=== PATIENT | male | born 1970 | race Caucasian/White ===

== ENCOUNTER 2017-02-17 11:20 | Inpatient (IN) | payer OTHER ==
[2017-02-17 11:30] VITALS: BMI 25.7
--- NOTE | 2017-02-17 11:33 | PDOC ---
History of Present Illness - General Chief Complaint: Rash Stated Complaint: RASH Time Seen by Provider: 02/17/17 11:22 History Source: Patient Exam Limitations: No Limitations - History of Present Illness Initial Comments: 02/17/17 11:23 This is a 46 yo M with a history of genital herpes Pt presented to [facility] with a complaint of a rash He was asked to follow up with an ID specialist Pt presented to the ER for evaluation He states that since 1996, he was diagnosed with Genital Herpes He has had outbreaks in several areas of his skin intermittently every 4-5 years More recently, it is happening every 2-3 years The last outbreak was approximately 3 years ago He noticed lesions on his back. He was seen by a supervisor polishing who told him it was Herpes He has never been treated His PMD has never seen him for this, has never treated him for this Five days ago he noted a few small erythematous lesions on the lateral left leg These lesions really began hurting 2 days ago He noted yellow drainage yesterday He noticed spreading erythema since last night No fevers or chills He now notes a few lesions on his right leg (small erythematous papules) He also notes lesions on his right thumb PMH: borderline diabetes PSH: denies Meds: denies ALL: NKDA Social: (+) tobacco use (1 cigarette ever 1month), marijuanna use, denies IVDU GENERAL/CONSTITUTIONAL: No: fever, chills, weakness, loss of appetite. HEAD, EYES, EARS, NOSE AND THROAT: No: change in vision, ear pain, discharge, sore throat, throat swelling. CARDIOVASCULAR: No: chest pain, lightheadedness, palpitations, syncope RESPIRATORY: No: cough, shortness of breath, wheezing, hemoptysis, stridor. GASTROINTESTINAL: No: nausea, vomiting, diarrhea, abdominal cramping, rectal bleeding, constipation. GENITOURINARY: No: dysuria, hematuria, frequency, urgency, flank pain. MUSCULOSKELETAL: No: back pain, neck pain, joint pain, muscle swelling or pain SKIN: Yes: lesions No: pallor, rash or easy bruising. NEUROLOGIC: No: headache, vertigo, paresthesias, weakness ENDOCRINE: No: unexplained weight gain or loss HEMATOLOGIC/LYMPHATIC: No: anemia, easy bleeding, swelling nodes. GENERAL: The patient is in no acute distress. HEAD: Normal with no signs of trauma. EYES: PERRLA, EOMI, sclera anicteric, conjunctiva clear. ENT: Ears normal, nares patent, oropharynx clear without exudates. Moist mucous membranes. NECK: Normal range of motion, supple without lymphadenopathy, JVD, or masses. LUNGS: Breath sounds equal, clear to auscultation bilaterally. No wheezes, and no crackles. HEART: Regular rate and rhythm, normal S1 and S2 without murmur, rub or gallop. ABDOMEN: Soft, nontender, normoactive bowel sounds. No guarding, no rebound. No masses palpable. EXTREMITIES: Normal range of motion, no edema. No clubbing or cyanosis. No erythema, or tenderness. NEUROLOGICAL: Cranial nerves II through XII grossly intact. Normal speech. No focal neurological deficits. MUSCULOSKELETAL: Back non-tender to palpation, no CVA tenderness SKIN: Left lateral leg with... Multiple erythematous lesions Skin erythema extends to the popliteal fossa (+) honey crusted drainage noted Skin is warm 02/17/17 11:33 02/19/17 07:33 Past History - Past Medical History Allergies/Adverse Reactions: Allergies Allergy/AdvReac Type Severity Reaction Status Date / Time No Known Allergies Allergy Verified 02/17/17 11:21 Home Medications: Ambulatory Orders NK [No Known Home Medication] 02/17/17 Heart Score/ECG Review #1 ECG reviewed & interpreted by me at: 17:01 02/17/17 17:01 Twelve-lead EKG was performed and reviewed by me. There is normal sinus rhythm with a normal rate of 57 bpm. The axis is normal. The intervals are normal - pr: 172ms, QRS:92ms, QTc:410ms. There are no ST elevations or depressions. T waves nml ED Treatment Course - LABORATORY CBC & Chemistry Diagram: 02/18/17 07:30 02/18/17 07:30 Medical Decision Making - Medical Decision Making 02/17/17 11:41 Likely herpes outbreak Can Give Valtrex Pt also has cellulitis/Impetigo Call placed to Dr thompson He will see him in the ER 02/17/17 13:47 Laboratory Tests 02/17/17 02/17/17 12:10 12:10 WBC 7.2 Hgb 16.6 Hct 47.2 Plt Count 206 Sodium 134 L Potassium 4.2 Chloride 99 Carbon Dioxide 29 H BUN 24 H Creatinine 1.1 02/17/17 16:32 Pt seen in the ER by Dr Thompson He would like him to be admitted for IV acyclovir He would like this patient admitted to Dr Hayes He has spoken with Dr hayes regarding this patient 02/17/17 16:33 *DC/Admit/Observation/Transfer Diagnosis at time of Disposition: Herpes simplex infection of skin, Impetigo - Discharge Dispostion Condition at time of disposition: Stable Admit: Yes - Referrals - Patient Instructions
[2017-02-17 13:10] LABS: BASOPHIL 0.5 % (0-2.0); EOSINOPHIL 2.3 % (0-4.5); MCH 32.2 pg (25.7-33.7); MCHC 35.3 g/dl (32.0-35.9); MEAN CELL VOLUME 91.3 fl (80-96); MEAN PLT VOLUME 9.4 fl (7.5-11.1); NEUTROPHILS 71.8 % (42.8-82.8); PLATELET COUNT 206 K/MM3 (134-434); RDW 12.1 % (11.9-15.9); WHITE BLOOD COUNT 7.2 K/mm3 (4.0-10.8)
[2017-02-17 13:20] LABS: ALBUMIN 4.5 g/dl (3.5-5.0); ALK PHOS 56 U/L (32-92); ANION GAP 6 (8-16); BILIRUBIN,TOTAL 1.8 mg/dl (0.2-1.0); CO2 29 mmol/L (22-28); CREATININE 1.1 mg/dl (0.6-1.3); GLUCOSE,RANDOM 97 mg/dl (74-106); SGOT/AST 20 U/L (10-42); SGPT/ALT 23 U/L (10-40); TOT PROT 6.9 g/dl (6.4-8.3)
[2017-02-17] MEDS ORDERED: ACYCLOVIR INJECTION 500 MG in DEXTROSE 5%-WATER - 100 ML IVPB ONE (16:28)
--- NOTE | 2017-02-17 16:45 | CONSULT ---
Consult Consult Specialty:: infectious diseases Reason for Consultation:: rash,flare up of herpes - History of Present Illness Chief Complaint: rash and itching History of Present Illness: 46 yo M with a history of genital herpes and flare up every 4 yrs now happening every 2 years comes again for a flare up.This time patient has more than one dermatome involved since 1996, he was diagnosed with Genital Herpes He was recently diagnosed with herpes but was never treated His PMD has never seen him for this, has never treated him for this Five days ago he noted a few small erythematous lesions on the lateral left leg which started hurting and itching also he did scratch it and then started having yellow drainage from the lesion and found that the erythema was spreading These lesions really began hurting 2 days ago it has now spread to his hand also new lesions on the penis according to him - History Source History Provided By: Patient Limitations to Obtaining History: No Limitations - Alcohol/Substance Use Hx Alcohol Use: No - Smoking History Smoking history: Current some day smoker Have you smoked in the past 12 months: Yes Aproximately how many cigarettes per day: 1 Home Medications - Allergies Allergies/Adverse Reactions: Allergies Allergy/AdvReac Type Severity Reaction Status Date / Time No Known Allergies Allergy Verified 02/17/17 11:21 - Home Medications Home Medications: Ambulatory Orders RX: Clindamycin [Cleocin -] 300 mg PO Q8H #15 capsule 02/19/17 RX: Valacyclovir HCl [Valtrex] 1,000 mg PO DAILY #7 tablet 02/19/17 Review of Systems - Review of Systems Constitutional: reports: No Symptoms Eyes: reports: No Symptoms HENT: reports: No Symptoms Neck: reports: No Symptoms Cardiovascular: reports: No Symptoms Respiratory: reports: No Symptoms Gastrointestinal: reports: No Symptoms Genitourinary: reports: No Symptoms Breasts: reports: No Symptoms Reported Musculoskeletal: reports: No Symptoms Integumentary: reports: Bruising, Erythema, Rash, Wound Neurological: reports: No Symptoms Endocrine: reports: No Symptoms Hematology/Lymphatic: reports: No Symptoms Psychiatric: reports: No Symptoms Physical Exam Vital Signs: Vital Signs Temperature 98.5 F 02/17/17 11:21 Pulse Rate 65 02/17/17 11:21 Respiratory Rate 18 02/17/17 11:21 Blood Pressure 125/81 02/17/17 11:21 O2 Sat by Pulse Oximetry (%) 96 02/17/17 11:21 Constitutional: Yes: Well Nourished, No Distress, Calm Neck: Yes: Supple Cardiovascular: Yes: Regular Rate and Rhythm Respiratory: Yes: Regular, CTA Bilaterally Gastrointestinal: Yes: Normal Bowel Sounds, Soft Renal/: Yes: Other (herpes lesions present at the base of the penis and the frenulum region) Musculoskeletal: Yes: Other Extremities: Yes: Other (rash on the left) Neurological: Yes: Alert, Oriented Psychiatric: Yes: Alert, Oriented Labs: CBC, BMP 02/17/17 12:10 02/17/17 12:10 Assessment/Plan herpes genitalis (1) Herpes simplex infection of skin Code(s): B00.9 - HERPESVIRAL INFECTION, UNSPECIFIED (2) Impetigo Code(s): L01.00 - IMPETIGO, UNSPECIFIED (3) disseminated herpes plan will start on acylovir also will start clinda hydration monitor the wounds once the wounds dry up will switch to oral await for all results to be back
[2017-02-17] MEDS: SODIUM CHLORIDE 1,000 ML IV SCH (16:50)
--- NOTE | 2017-02-17 18:10 | PDOC ---
ED Treatment Course - LABORATORY CBC & Chemistry Diagram: 02/17/17 12:10 02/17/17 12:10 - ADDITIONAL ORDERS Additional order review: Laboratory Results 02/17/17 12:10 Sodium 134 L Potassium 4.2 Chloride 99 Carbon Dioxide 29 H Anion Gap 6 L BUN 24 H Creatinine 1.1 Creat Clearance w eGFR > 60 Random Glucose 97 Calcium 9.0 Total Bilirubin 1.8 H AST 20 ALT 23 Alkaline Phosphatase 56 Total Protein 6.9 Albumin 4.5 02/17/17 12:10 RBC 5.17 MCV 91.3 MCHC 35.3 RDW 12.1 MPV 9.4 Neutrophils % 71.8 Lymphocytes % 18.2 Monocytes % 7.2 Eosinophils % 2.3 Basophils % 0.5 Medical Decision Making - Medical Decision Making 02/17/17 18:10 Will pLace on observation *DC/Admit/Observation/Transfer Diagnosis at time of Disposition: Herpes simplex infection of skin, Impetigo - Discharge Dispostion Condition at time of disposition: Stable Admit: Yes Decision to Admit order Date/Time: Decision to Admit Order Category Date Time Status Decision to Admit to Hospital Routine Admission 02/17/17 16:33 Active
[2017-02-17] MEDS ORDERED: CLINDAMYCIN PHOSPHATE 600 MG/4 ML VIAL ONE (18:12)
[2017-02-17] MEDS: CLINDAMYCIN 600MG PREMIX IVPB 50 ML IVPB SCH (18:13)
--- NOTE | 2017-02-17 19:20 | HP ---
Admitting History and Physical - Primary Care Physician PCP: Abelino Pisano - Admission Chief Complaint: rash History of Present Illness: This is a 46 yo M with a history of genital herpes Pt presented to [facility] with a complaint of a rash He was asked to follow up with an ID specialist Pt presented to the ER for evaluation He states that since 1996, he was diagnosed with Genital Herpes He has had outbreaks in several areas of his skin intermittently every 4-5 years More recently, it is happening every 2-3 years The last outbreak was approximately 3 years ago He noticed lesions on his back. He was seen by a mergers and acquisitions banker who told him it was Herpes He has never been treated His PMD has never seen him for this, has never treated him for this Five days ago he noted a few small erythematous lesions on the lateral left leg These lesions really began hurting 2 days ago He noted yellow drainage yesterday He noticed spreading erythema since last night No fevers or chills He now notes a few lesions on his right leg (small erythematous papules) He also notes lesions on his right thumb history taken from er records and reviewed with patient - Smoking History Smoking history: Current some day smoker Have you smoked in the past 12 months: Yes Aproximately how many cigarettes per day: 1 - Alcohol/Substance Use Hx Alcohol Use: No Home Medications - Allergies Allergies/Adverse Reactions: Allergies Allergy/AdvReac Type Severity Reaction Status Date / Time No Known Allergies Allergy Verified 02/17/17 11:21 - Home Medications Home Medications: Ambulatory Orders Clindamycin [Cleocin -] 300 mg PO Q8H #15 capsule 02/19/17 Valacyclovir HCl [Valtrex] 1,000 mg PO DAILY #7 tablet 02/19/17 Physical Examination Vital Signs: Vital Signs Temperature 98.5 F 02/17/17 11:21 Pulse Rate 65 02/17/17 11:21 Respiratory Rate 18 02/17/17 11:21 Blood Pressure 125/81 02/17/17 11:21 O2 Sat by Pulse Oximetry (%) 96 02/17/17 11:21 Constitutional: Yes: No Distress HENT: Yes: Atraumatic Neck: Yes: Supple Cardiovascular: Yes: Regular Rate and Rhythm Respiratory: Yes: CTA Bilaterally Gastrointestinal: Yes: Normal Bowel Sounds Extremities: Yes: Other (lesions of herpes on lower extremity right thumb) Edema: No Peripheral Pulses WNL: Yes Integumentary: Yes: Rash Neurological: Yes: Alert, Oriented Problem List - Problems (1) Herpes simplex infection of skin Assessment/Plan: on iv abx per id Code(s): B00.9 - HERPESVIRAL INFECTION, UNSPECIFIED (2) Impetigo Assessment/Plan: on abx Code(s): L01.00 - IMPETIGO, UNSPECIFIED Assessment/Plan Laboratory Tests 02/17/17 02/17/17 12:10 12:10 WBC 7.2 RBC 5.17 Hgb 16.6 Hct 47.2 MCV 91.3 MCHC 35.3 RDW 12.1 Plt Count 206 MPV 9.4 Neutrophils % 71.8 Lymphocytes % 18.2 Monocytes % 7.2 Eosinophils % 2.3 Basophils % 0.5 Sodium 134 L Potassium 4.2 Chloride 99 Carbon Dioxide 29 H Anion Gap 6 L BUN 24 H Creatinine 1.1 Creat Clearance w eGFR > 60 Random Glucose 97 Calcium 9.0 Total Bilirubin 1.8 H AST 20 ALT 23 Alkaline Phosphatase 56 Total Protein 6.9 Albumin 4.5 Active Medications Generic Name Dose Route Start Last Admin Trade Name Freq PRN Reason Stop Dose Admin Clindamycin Phosphate 50 mls @ 100 mls/hr 02/17/17 18:00 02/17/17 18:13 Cleocin 600 Mg Premix Ivpb - IVPB 100 mls/hr Q8H-IV ALLEGRA Administration Acyclovir 400 mg/ Dextrose 108 mls @ 108 mls/hr 02/18/17 02:00 IVPB Q8H-IV ALLEGRA Sodium Chloride 1,000 mls @ 83 mls/hr 02/17/17 16:45 02/17/17 16:50 Normal Saline - IV 83 mls/hr ASDIR ALLEGRA Administration
[2017-02-17] MEDS ORDERED: ACETAMINOPHEN 325 MG TABLET (FP) PO PRN (19:22)
[2017-02-17] MEDS ORDERED: oxyCODONE HCL 5 MG TABLET PO PRN (19:23)
[2017-02-17 20:41] LABS: HIV 1 & 2 AB NEGATIVE; HIV 1 AGp24 NEGATIVE
[2017-02-18] MEDS: CLINDAMYCIN 600MG PREMIX IVPB 50 ML IVPB SCH ×3 (01:10→17:11)
[2017-02-18] MEDS: ACYCLOVIR INJECTION 400 MG in DEXTROSE 5%-WATER - 100 ML IVPB SCH ×3 (02:03→17:11)
[2017-02-18 08:07] LABS: ALBUMIN 3.8 g/dl (3.5-5.0); ALK PHOS 48 U/L (32-92); ANION GAP 3 (8-16); BILIRUBIN,TOTAL 1.7 mg/dl (0.2-1.0); CALCIUM 8.4 mg/dl (8.4-10.2); CO2 28 mmol/L (22-28); GLUCOSE,RANDOM 101 mg/dl (74-106); SGOT/AST 17 U/L (10-42); SGPT/ALT 20 U/L (10-40); TOT PROT 5.8 g/dl (6.4-8.3)
[2017-02-18 08:23] LABS: BASOPHIL 1.5 % (0-2.0); EOSINOPHIL 5.1 % (0-4.5); MCH 31.2 pg (25.7-33.7); MCHC 33.9 g/dl (32.0-35.9); MEAN PLT VOLUME 9.1 fl (7.5-11.1); NEUTROPHILS 48.4 % (42.8-82.8); PLATELET COUNT 184 K/MM3 (134-434); RDW 12.2 % (11.9-15.9); WHITE BLOOD COUNT 4.5 K/mm3 (4.0-10.8)
[2017-02-18] MEDS ORDERED: PT OWN MED DRAWER 7, Y5N ONE ×2 (10:01→16:36)
--- NOTE | 2017-02-18 14:02 | PN ---
Progress Note, Physician - Current Medication List Current Medications: Active Medications Acetaminophen (Tylenol -) 650 mg PO Q6H PRN PRN Reason: FEVER OR PAIN Clindamycin Phosphate (Cleocin 600 Mg Premix Ivpb -) 50 mls @ 100 mls/hr IVPB Q8H-IV ALLEGRA Last Admin: 02/19/17 17:20 Dose: 100 mls/hr Acyclovir 400 mg/ Dextrose 108 mls @ 108 mls/hr IVPB Q8H-IV ALLEGRA Last Admin: 02/19/17 17:20 Dose: 108 mls/hr Oxycodone HCl (Roxicodone -) 10 mg PO Q6H PRN PRN Reason: PAIN - Objective Vital Signs: Vital Signs Temperature 98.6 F 02/19/17 14:00 Pulse Rate 68 02/19/17 14:00 Respiratory Rate 18 02/19/17 18:07 Blood Pressure 119/59 02/19/17 14:00 O2 Sat by Pulse Oximetry (%) 97 02/19/17 20:28 Labs: CBC, BMP 02/18/17 07:30 02/18/17 07:30 <Abelino Pisano - Last Filed: 02/19/17 20:46> History of Present Illness: patient doing much better wounds drying - Current Medication List Current Medications: Active Medications Acetaminophen (Tylenol -) 650 mg PO Q6H PRN PRN Reason: FEVER OR PAIN Clindamycin Phosphate (Cleocin 600 Mg Premix Ivpb -) 50 mls @ 100 mls/hr IVPB Q8H-IV ALLEGRA Last Admin: 02/18/17 10:07 Dose: 100 mls/hr Acyclovir 400 mg/ Dextrose 108 mls @ 108 mls/hr IVPB Q8H-IV ALLEGRA Last Admin: 02/18/17 10:07 Dose: 108 mls/hr Sodium Chloride (Normal Saline -) 1,000 mls @ 83 mls/hr IV ASDIR ALLEGRA Last Admin: 02/17/17 16:50 Dose: 83 mls/hr Oxycodone HCl (Roxicodone -) 10 mg PO Q6H PRN PRN Reason: PAIN - Objective Vital Signs: Vital Signs Temperature 97.7 F 02/18/17 08:59 Pulse Rate 62 02/18/17 08:59 Respiratory Rate 18 02/18/17 08:59 Blood Pressure 125/63 02/18/17 08:59 O2 Sat by Pulse Oximetry (%) 97 02/18/17 06:28 Constitutional: Yes: No Distress, Calm HENT: Yes: Atraumatic Cardiovascular: Yes: Regular Rate and Rhythm Respiratory: Yes: Regular, CTA Bilaterally Gastrointestinal: Yes: Normal Bowel Sounds, Soft Musculoskeletal: Yes: WNL Extremities: Yes: Other (rash drying) Neurological: Yes: Alert, Oriented Psychiatric: Yes: Alert Labs: CBC, BMP 02/18/17 07:30 02/18/17 07:30 <Rosalino Fry - Last Filed: 02/23/17 13:04> Problem List - Problems (1) Herpes simplex infection of skin Assessment/Plan: on iv abx Code(s): B00.9 - HERPESVIRAL INFECTION, UNSPECIFIED (2) Impetigo Assessment/Plan: on clindamycin Code(s): L01.00 - IMPETIGO, UNSPECIFIED (3) Chest pain Assessment/Plan: will fu cardiac enzymes cardiology consult tele monitoring Code(s): R07.9 - CHEST PAIN, UNSPECIFIED <Abelino Pisano - Last Filed: 02/19/17 20:46> Assessment/Plan disseminated herepes genital herpes wound infection patients lesions have improved we should yaya able to switch to oral herpes medications tomorrow rest continue as per hernandez <Rosalino Fry M - Last Filed: 02/23/17 13:04>
[2017-02-18] MEDS: SODIUM CHLORIDE 1,000 ML IV SCH (17:11)
--- NOTE | 2017-02-18 17:32 | PN ---
Progress Note, Physician History of Present Illness: chest pain on and off today has been resting he had chest pain in the past and his pmd told him its musculoskeltal and was given motrin - Current Medication List Current Medications: Active Medications Acetaminophen (Tylenol -) 650 mg PO Q6H PRN PRN Reason: FEVER OR PAIN Clindamycin Phosphate (Cleocin 600 Mg Premix Ivpb -) 50 mls @ 100 mls/hr IVPB Q8H-IV ALLEGRA Last Admin: 02/18/17 17:11 Dose: 100 mls/hr Acyclovir 400 mg/ Dextrose 108 mls @ 108 mls/hr IVPB Q8H-IV ALLEGRA Last Admin: 02/18/17 17:11 Dose: 108 mls/hr Oxycodone HCl (Roxicodone -) 10 mg PO Q6H PRN PRN Reason: PAIN - Objective Vital Signs: Vital Signs Temperature 98.6 F 02/18/17 14:00 Pulse Rate 60 02/18/17 14:00 Respiratory Rate 18 02/18/17 14:00 Blood Pressure 113/56 02/18/17 14:00 O2 Sat by Pulse Oximetry (%) 94 L 02/18/17 14:00 Constitutional: Yes: No Distress HENT: Yes: Atraumatic Neck: Yes: Supple Cardiovascular: Yes: Regular Rate and Rhythm Respiratory: Yes: CTA Bilaterally Gastrointestinal: Yes: Normal Bowel Sounds Labs: CBC, BMP 02/18/17 07:30 02/18/17 07:30 Problem List - Problems (1) Herpes simplex infection of skin Assessment/Plan: on iv abx per id Code(s): B00.9 - HERPESVIRAL INFECTION, UNSPECIFIED (2) Impetigo Assessment/Plan: on abx Code(s): L01.00 - IMPETIGO, UNSPECIFIED (3) Chest pain Assessment/Plan: ekg, cardiac profile tele monitoring cardiology consult Code(s): R07.9 - CHEST PAIN, UNSPECIFIED
[2017-02-18 21:59] LABS: CPK(DFH) 89 IU/L (38-174)
[2017-02-18 22:11] LABS: TROPONIN I (DFP) < 0.03 ng/ml (0.03-0.50)
[2017-02-19] MEDS ORDERED: PT OWN MED DRAWER 7, Y5N ONE ×2 (01:38→17:18)
[2017-02-19] MEDS: CLINDAMYCIN 600MG PREMIX IVPB 50 ML IVPB SCH ×3 (01:39→17:20)
[2017-02-19] MEDS: ACYCLOVIR INJECTION 400 MG in DEXTROSE 5%-WATER - 100 ML IVPB SCH ×3 (02:31→17:20)
[2017-02-19 06:06] LABS: TROPONIN I < 0.02 ng/ml (0.00-0.05)
--- NOTE | 2017-02-19 07:30 | CON.CARD ---
Consult Consult Specialty:: Cardiology Referred by:: Dr. Pisano Reason for Consultation:: Chest pain - History of Present Illness Chief Complaint: Admitted for herpes infection, stated he had an episode of chest pain History of Present Illness: 46 year old man with no prior pmh admitted for treatment of herpes infection. Pt. mentioned during admission that he had an episode of chest pain. Pt. was seen and examined today in [facility]. He states that he has had episodes of chest pain in the past and was told by his PMD that it is musculoskeletal. He states that he exercises regularly doing high intensity work outs with a machine at home. He states that he occasionally has mild substernal chest pain after his work out and other times randomnly. he states it is sticking like, sharp, lasts for a few seconds then resolves on its own. it does not usually occur during exercise. no sob, palpitations, pnd, orthopnea, le edema. no lightheadedness, dizziness, syncope, near syncope. He states that the pain he felt during this admission is the same that he always has. He wouldnt have mentioned it except that he was asked. - History Source History Provided By: Patient, Medical Record Limitations to Obtaining History: No Limitations - Past Medical History Infectious Disease: Yes: Other (herpes) - Alcohol/Substance Use Hx Alcohol Use: No - Smoking History Smoking history: Current some day smoker Have you smoked in the past 12 months: Yes Aproximately how many cigarettes per day: 1 - Social History ADL: Independent History of Recent Travel: No Home Medications - Allergies Allergies/Adverse Reactions: Allergies Allergy/AdvReac Type Severity Reaction Status Date / Time No Known Allergies Allergy Verified 02/17/17 11:21 - Home Medications Home Medications: Ambulatory Orders NK [No Known Home Medication] 02/17/17 Family Disease History - Family Disease History Family History: Denies Review of Systems - Review of Systems Constitutional: denies: No Symptoms, Chills, Diaphoresis, Fever, Lethargy, Loss of Appetite, Malaise, Night Sweats, Unintentional Wgt. Loss, Weakness, Other Eyes: denies: No Symptoms, Blind Spots, Blurred Vision, Double Vision, Eye Pain , Floaters, Photophobia, Recent Change in Vision, Other HENT: denies: No Symptoms, Difficult Swallowing, Ear Discharge, Ear Pain, Epistaxis, Gingival Bleeding, Hearing Loss, Mouth Swelling, Nasal Congestion, Ocular Prosthesis, Throat Pain, Toothache, Ringing in Ears, Other Neck: denies: No Symptoms, Decreased ROM, Lumps, Pain on Movement, Stiffness, Swollen Glands, Tenderness, Other Cardiovascular: reports: Chest Pain. denies: No Symptoms, Edema, Palpitations, Shortness of Breath, Other Respiratory: denies: No Symptoms, Cough, Exercise Intolerance, Hemoptysis, Orthopnea, PND, Snoring, SOB, SOB on Exertion, Wheezing, Other Gastrointestinal: denies: No Symptoms, Abdominal Pain, Bloating, Constipation, Diarrhea, Dysphagia, Indigestion, Melena, Nausea, Rectal Bleeding, Vomiting, Vomiting Blood, Other Genitourinary: denies: No Symptoms, Burning, Discharge, Dysuria, Flank Pain, Frequency, Hematuria, Incontinence, Lesions, Menses, Pain, Testicular Mass, Testicular Pain, Testicular Swelling, Urgency, Vaginal Bleeding, Other Breasts: denies: No Symptoms Reported, See HPI, Breast Implants, Discharge from Nipple, Lumps, Pain, Skin Changes, Other Musculoskeletal: denies: No Symptoms, Back Pain, Crepitus, Decreased ROM, Extremity Pain, Joint Pain, Joint Swelling, Muscle Pain, Muscle Cramps, Muscle Weakness, Other Integumentary: reports: Rash. denies: No Symptoms, Blister, Bruising, Change in Color, Eczema, Erythema, Incision, Lesions, Lump, Pallor, Pruritis, Wound, Other Neurological: denies: No Symptoms, Change in LOC, Change in Speech, Confusion, Dizziness, Headache, Incoordination, Numbness, Parasthesia, Pre-Existing Deficit , Seizure, Syncope, Tremors, Unsteady Gait, Weakness, Other Endocrine: denies: No Symptoms, Excessive Sweating, Flushing, Increased Hunger, Increased Thirst, Intolerance to Cold, Intolerance to Heat, Unexplained Weight Gain, Unexplained Weight Loss, Other Hematology/Lymphatic: denies: No Symptoms, Easily Bruised, Excessive Bleeding, Swollen Glands, Other Psychiatric: denies: No Symptoms, Altered Sleep Pattern, Anxiety, Depression, Hallucinations, Panic, Paranoia, Suicidal, Other Vital Signs: Vital Signs Temperature 97.9 F 02/19/17 06:00 Pulse Rate 54 L 02/19/17 06:00 Respiratory Rate 18 02/19/17 06:00 Blood Pressure 108/62 02/19/17 06:00 O2 Sat by Pulse Oximetry (%) 96 02/19/17 06:00 Constitutional: Yes: Well Nourished, No Distress, Calm Eyes: Yes: WNL, Conjunctiva Clear, EOM Intact, PERRL HENT: Yes: WNL, Atraumatic, Normocephalic Neck: Yes: WNL, Supple, Trachea Midline Respiratory: Yes: WNL, Regular, CTA Bilaterally. No: Rales, Rhonchi, SOB, Wheezes Gastrointestinal: Yes: WNL, Normal Bowel Sounds, Soft. No: Distention, Tenderness Renal/: Yes: WNL Cardiovascular: Yes: WNL, Regular Rate and Rhythm. No: Bradycardia, Tachycardia , Pulse Irregular, Gallop, Rub, Varicosities JVD: No Carotid Bruit: No PMI: Non-Displaced Heart Sounds: Yes: S1, S2. No: Split S2, S3, S4, Clicks, Gallop, Rub, Bruit Murmur: No: Systolic Murmur, Diastolic Murmur Musculoskeletal: Yes: WNL Extremities: Yes: WNL Edema: No Peripheral Pulses WNL: Yes Peripheral Pulses: 2+ Left Doralis Pedis, 2+ Right Dorsalis Pedis Integumentary: Yes: Rash Neurological: Yes: WNL, Alert, Oriented, Cran Nerves II-XII Intact ...Motor Strength: WNL Psychiatric: Yes: WNL, Alert, Oriented - Other Data Labs, Other Data: CBC, BMP 02/18/17 07:30 02/18/17 07:30 Troponin, BNP 02/18/17 02/19/17 21:15 05:00 Troponin I < 0.03 L < 0.02 Troponin, BNP 02/18/17 02/19/17 21:15 05:00 Troponin I < 0.03 L < 0.02 ekg-NSR 61bpm, incomplete RBBB, nonspecific ST abnl Imaging - Results Chest X-ray: Report Reviewed, Image Reviewed EKG: Report Reviewed, Image Reviewed Other: Report Reviewed, Image Reviewed (tele-sinus bradycardia 50's) Assessment/Plan Disseminated Herpes Atypical chest pain, intermittent and chronic, dx MSK pain in past Sinus bradycardia Abnormal EKG non-anginal chest pain, likely non-cardiac, likely MSK cardiac enzymes wnl no sig arrythmia on telemetry no ischemia on ekg recommend outpatient follow up and consideration for an ETT as outpatient to both confirm there is no ischemia and to evaluate for chronotropic competency In regards to sinus bradycardia, pt is asymptomatic, exercises regularly without limitation, no sig arrhythmias on tele can dc tele no further inpatient work up needed at this point
--- NOTE | 2017-02-19 12:28 | PN ---
Progress Note, Physician History of Present Illness: patient doing well had chest pain yesterday was evaluated by cardiology workup negative - Current Medication List Current Medications: Active Medications Acetaminophen (Tylenol -) 650 mg PO Q6H PRN PRN Reason: FEVER OR PAIN Clindamycin Phosphate (Cleocin 600 Mg Premix Ivpb -) 50 mls @ 100 mls/hr IVPB Q8H-IV ALLEGRA Last Admin: 02/19/17 10:24 Dose: 100 mls/hr Acyclovir 400 mg/ Dextrose 108 mls @ 108 mls/hr IVPB Q8H-IV ALLEGRA Last Admin: 02/19/17 10:27 Dose: 108 mls/hr Oxycodone HCl (Roxicodone -) 10 mg PO Q6H PRN PRN Reason: PAIN - Objective Vital Signs: Vital Signs Temperature 98 F 02/19/17 10:00 Pulse Rate 59 L 02/19/17 10:00 Respiratory Rate 18 02/19/17 10:27 Blood Pressure 116/66 02/19/17 10:00 O2 Sat by Pulse Oximetry (%) 98 02/19/17 10:27 Constitutional: Yes: No Distress, Calm Eyes: Yes: Conjunctiva Clear HENT: Yes: Atraumatic, Normocephalic Cardiovascular: Yes: Regular Rate and Rhythm Respiratory: Yes: Regular, CTA Bilaterally Gastrointestinal: Yes: Normal Bowel Sounds, Soft Musculoskeletal: Yes: Other Extremities: Yes: Other Neurological: Yes: Alert, Oriented Psychiatric: Yes: Alert, Oriented Labs: CBC, BMP 02/18/17 07:30 02/18/17 07:30 Assessment/Plan disseminated herepes genital herpes wound infection patients lesions have improved patient can be discharged tomorrow morning on valcylovir 1 gm daily for another 7 days also clinda 300mg every 8 hourly for 5 days if patients lesions do not improve then to see his primary doctor and extend the treatment his hcv,niserria and chlamydia test are still pending
--- NOTE | 2017-02-19 18:28 | EKG ---
Test Reason : Blood Pressure : / mmHG Vent. Rate : 057 BPM Atrial Rate : 057 BPM P-R Int : 172 ms QRS Dur : 092 ms QT Int : 422 ms P-R-T Axes : 047 -25 031 degrees QTc Int : 410 ms SINUS BRADYCARDIA INCOMPLETE RIGHT BUNDLE BRANCH BLOCK NO PREVIOUS ECGS AVAILABLE Confirmed by MD BYRON, JARETT ([id number] on 02/19/2017 6:28:08 PM Referred By: ERIC MCGINNIS Confirmed By:JARETT MATTHEWS MD
--- NOTE | 2017-02-19 20:54 | PN ---
Progress Note, Physician History of Present Illness: doing well - Current Medication List Current Medications: Active Medications Acetaminophen (Tylenol -) 650 mg PO Q6H PRN PRN Reason: FEVER OR PAIN Clindamycin Phosphate (Cleocin 600 Mg Premix Ivpb -) 50 mls @ 100 mls/hr IVPB Q8H-IV ALLEGRA Last Admin: 02/19/17 17:20 Dose: 100 mls/hr Acyclovir 400 mg/ Dextrose 108 mls @ 108 mls/hr IVPB Q8H-IV ALLEGRA Last Admin: 02/19/17 17:20 Dose: 108 mls/hr Oxycodone HCl (Roxicodone -) 10 mg PO Q6H PRN PRN Reason: PAIN - Objective Vital Signs: Vital Signs Temperature 98.6 F 02/19/17 14:00 Pulse Rate 68 02/19/17 14:00 Respiratory Rate 18 02/19/17 18:07 Blood Pressure 119/59 02/19/17 14:00 O2 Sat by Pulse Oximetry (%) 97 02/19/17 20:28 Constitutional: Yes: No Distress HENT: Yes: Atraumatic Neck: Yes: Supple Cardiovascular: Yes: Regular Rate and Rhythm Respiratory: Yes: CTA Bilaterally Gastrointestinal: Yes: Normal Bowel Sounds Extremities: Yes: WNL, Other (lesions of herpes are drying scabs are seen) Neurological: Yes: Alert, Oriented Labs: CBC, BMP 02/18/17 07:30 02/18/17 07:30 Problem List - Problems (1) Herpes simplex infection of skin Assessment/Plan: on iv abx per id will switch to po tomorrow and dc home Code(s): B00.9 - HERPESVIRAL INFECTION, UNSPECIFIED (2) Impetigo Assessment/Plan: on abx Code(s): L01.00 - IMPETIGO, UNSPECIFIED (3) Chest pain Assessment/Plan: resolved atypical trponions negative fu cardiology as out pt Code(s): R07.9 - CHEST PAIN, UNSPECIFIED
[2017-02-19 22:51] VITALS: PULSE 59
[2017-02-20] MEDS ORDERED: PT OWN MED DRAWER 7, Y5N ONE (01:22)
[2017-02-20] MEDS: CLINDAMYCIN 600MG PREMIX IVPB 50 ML IVPB SCH (01:23)
[2017-02-20] MEDS: ACYCLOVIR INJECTION 400 MG in DEXTROSE 5%-WATER - 100 ML IVPB SCH (01:23)
[2017-02-20 06:28] VITALS: BP 95/58; TEMP 97.9
--- NOTE | 2017-02-21 13:30 | EKG ---
Test Reason : Blood Pressure : / mmHG Vent. Rate : 061 BPM Atrial Rate : 061 BPM P-R Int : 158 ms QRS Dur : 096 ms QT Int : 432 ms P-R-T Axes : 050 -24 039 degrees QTc Int : 434 ms NORMAL SINUS RHYTHM LOW VOLTAGE QRS INCOMPLETE RIGHT BUNDLE BRANCH BLOCK BORDERLINE ECG WHEN COMPARED WITH ECG OF 17-FEB-2017 16:46, NO SIGNIFICANT CHANGE WAS FOUND Confirmed by PAMELA RAHMAN MD ([id number]) on 02/21/2017 1:30:25 PM Referred By: MD SOTO Confirmed By:PAMELA RAHMAN MD
== END 2017-02-20 09:24 | disposition home or self-care (01) | DRG 607 ==
LOC: FER 11:20 → FM/S 18:03 → UNDOADMOB 18:03 → OBSVTOIN 20:46 → INTOOBSV 20:46 → FM/S 02-19 20:46 → OBSVTOIN 02-19 20:46
PROVIDERS: ADMIT Internal Medicine; ATTEND Internal Medicine
DX: B00.9 Herpesviral infection, unspecified (principal); L01.09 Other impetigo; F17.210 Nicotine dependence, cigarettes, uncomplicated; B00.7 Disseminated herpesviral disease; R07.89 Other chest pain; I45.19 Other right bundle-branch block; R00.1 Bradycardia, unspecified; R94.31 Abnormal electrocardiogram [ECG] [EKG]
CPT/HCPCS: 36415; 80053; 82550; 84484; 85025; 86593; 87040; 87086; 87389; 87491; 87522; 87591; 93005; 99282-25